=== PATIENT | female | born 1995 | race American Indian/Alaskan Native ===

== ENCOUNTER 2021-08-28 23:21 | Emergency (ER) | payer OTHER ==
[2021-08-29] MEDS ORDERED: SODIUM CHLORIDE 0.9% 1000 ML 1,000 ML IV ONE (00:10)
[2021-08-29 00:36] VITALS: BP 105/66
[2021-08-29 00:40] LABS: Basophils % (Auto) 0.4 % (0.0-1.8); Eosinophils # (Auto) 0.1 K/mm3 (0.0-0.4); Hematocrit 36.7 % (30.3-42.9); Hemoglobin 12.7 gm/dl (10.1-14.3); Lymphocytes # (Auto) 2.2 K/mm3 (1.2-5.4); Lymphocytes % (Auto) 20.7 % (13.4-35.0); Mean Corpuscular HGB Conc 35 % (30-34); Mean Corpuscular Volume 98 fl (79-97); Monocytes # (Auto) 0.6 K/mm3 (0.0-0.8); Monocytes % (Auto) 5.9 % (0.0-7.3); Platelet Count 410 K/mm3 (140-440); Red Blood Count 3.75 M/mm3 (3.65-5.03); Red Cell Distribution Width 13.8 % (13.2-15.2)
[2021-08-29 00:55] LABS: Alanine Aminotransferase 19 units/L (7-56); Albumin 4.4 g/dL (3.9-5); Albumin 4.5 g/dL (3.9-5); Blood Urea Nitrogen 8 mg/dL (7-17); Calcium 9.7 mg/dL (8.4-10.2); Hemolysis Index 4
[2021-08-29 00:56] LABS: BUN/Creatinine Ratio 20; Bilirubin,Direct < 0.2 mg/dL (0-0.2)
--- NOTE | 2021-08-29 02:01 | Emergency Department Report ---
ED Seizure HPI - General Chief Complaint: Seizure Stated Complaint: SEIZURE Time Seen by Provider: 08/29/21 00:07 Source: patient, EMS Mode of arrival: Stretcher Limitations: No Limitations - History of Present Illness Initial Comments: 9 weeks . Witnessed seizure tonight while at [facility]. AAOX3 when EMS arrived. Magnesium 4 GM infusing. Complaint: possible seizure, loss of consciousness -: hour(s) Witnessed:: No Trauma: No Seizure History: none Associated Symptoms: denies: denies other symptoms, chest pain, confusion, cough ED Review of Systems ROS: Stated complaint: SEIZURE Other details as noted in HPI Constitutional: denies: chills, fever Eyes: denies: eye pain, eye discharge, vision change ENT: denies: ear pain, throat pain Respiratory: denies: cough, shortness of breath, wheezing Cardiovascular: denies: chest pain, palpitations Endocrine: no symptoms reported Gastrointestinal: denies: abdominal pain, nausea, diarrhea Genitourinary: denies: urgency, dysuria, discharge Musculoskeletal: denies: back pain, joint swelling, arthralgia Skin: denies: rash, lesions Neurological: denies: headache, weakness, paresthesias Psychiatric: denies: anxiety, depression Hematological/Lymphatic: denies: easy bleeding, easy bruising ED Past Medical Hx - Past Medical History Previous Medical History?: No Hx Hypertension: No Hx CVA: No - Social History Smoking Status: Never Smoker Substance Use Type: None ED Physical Exam - General Limitations: No Limitations General appearance: alert, in no apparent distress - Head Head exam: Present: atraumatic, normocephalic - Eye Eye exam: Present: normal appearance - ENT ENT exam: Present: mucous membranes moist - Neck Neck exam: Present: normal inspection - Respiratory Respiratory exam: Present: normal lung sounds bilaterally. Absent: respiratory distress - Cardiovascular Cardiovascular Exam: Present: regular rate, normal rhythm. Absent: systolic murmur, diastolic murmur, rubs, gallop - GI/Abdominal GI/Abdominal exam: Present: soft, normal bowel sounds - Extremities Exam Extremities exam: Present: normal inspection - Back Exam Back exam: Present: normal inspection - Neurological Exam Neurological exam: Present: alert, oriented X3 - Psychiatric Psychiatric exam: Present: normal affect, normal mood - Skin Skin exam: Present: warm, dry, intact, normal color. Absent: rash ED Course Vital Signs 08/28/21 08/29/21 08/29/21 23:50 00:34 00:36 Temperature 98.4 F 98.3 F Pulse Rate 70 72 Respiratory 18 15 Rate Blood Pressure 100/66 Blood Pressure 105/66 [Left] O2 Sat by Pulse 100 100 100 Oximetry ED Medical Decision Making - Lab Data Result diagrams: 08/29/21 00:20 08/29/21 00:20 - EKG Data -: EKG Interpreted by Me EKG shows normal: sinus rhythm Rate: normal - Medical Decision Making WORK UP UNREMARKABLE , VSS , NO DISTRESS , NO EVIDENCE OF SEIZURE , WILL REFER TO NEUROLOGY Critical care attestation.: If time is entered above; I have spent that time in minutes in the direct care of this critically ill patient, excluding procedure time. ED Disposition Clinical Impression: Syncope, Disposition: 01 HOME / SELF CARE / HOMELESS Is pt being admited?: No Does the pt Need Aspirin: No Condition: Stable Instructions: Syncope (ED), Care, Near-Syncope, [id number], Near- Syncope Referrals: KRISTOPHER COOK MD [Primary Care Provider] - 3-5 Days REJI HOOVER MD [Staff Physician] - 3-5 Days
[2021-08-29 02:06] LABS: HCG Qualitative,Urine Positive (Negative)
[2021-08-29 02:07] LABS: Bacteria,Urine 1+ /HPF (Negative); Bilirubin,Urine NEG (Negative); Blood,Urine SM (Negative); Color,Urine Straw (Yellow); Mucus,Urine FEW /HPF; Protein,Urine <15 mg/dL mg/dL (Negative); Urobilinogen,Urine < 2.0 mg/dL (<2.0)
[2021-08-29 02:08] LABS: Amphetamine Screen,Urine Negative; Benzodiazepines Screen,Urine Negative; Cocaine Screen,Urine Negative; Methadone Screen,Urine Negative; Opiate Screen,Urine Negative
[2021-08-29 02:27] LABS: Cannabinoid Screen,Urine PRESUMPTIVE POSITIVE
--- NOTE | 2021-08-30 10:42 | Electrocardiograph Report ---
[facility] Test Date: 2021-08-29 Test Time: 00:57:05 Pat Name: MARISOL MCCULLOUGH Department: Room: Gender: F Corporate Trainer: TOÑO : 1995 Requested By: LARRY LUIS Order Number: [id number] Reading MD: Epi Thao Measurements Intervals [place] Rate: 77 P: 40 MI: 152 QRS: 60 QRSD: 80 T: 39 QT: 388 QTc: 439 Interpretive Statements Sinus rhythm No previous ECG available for comparison Electronically Signed On 08-30-2021 10:41:28 EDT by Epi Thao
== END 2021-08-29 03:08 | disposition home or self-care (01) ==
LOC: ED 23:21
DX: O26.891 Other specified pregnancy related conditions, first trimester (principal); R55 Syncope and collapse; R56.9 Unspecified convulsions
CPT/HCPCS: 36415; 80053; 80076; 80307; 80320; 81001; 81025; 82550; 84702; 85025; 93005; 99284; G0480